=== PATIENT | male | born 1985 | race Caucasian/White ===

== ENCOUNTER 2019-01-12 20:16 | Emergency (ER) | payer OTHER ==
[~2019-01-12] VITALS: Ht 185.4 cm; Wt 95.3 kg
--- NOTE | 2019-01-12 20:12 | NUR ---
ED Nurse Note: pt brought in by DEBBIE from [facility] c/c sob x 30 min, per EMS report pt ran out of albuterol inhaler, pt received 10mg albuterol nebulizer tx on field by medic. pt aA&ox4, gcs=15, tachypnea, sinus tach on surveillance system monitor, o2sat 94%, noted LS=wheezing on auscultation, will cont monitor.
--- NOTE | 2019-01-12 20:16 | NUR ---
ED Nurse Note: RT contacted.
[2019-01-12 20:19] VITALS: BP 106/68
[2019-01-12] MEDS ORDERED: ALBUTEROL2.5 MG/3 M INH (20:23)
--- NOTE | 2019-01-12 20:25 | Emergency Room Report ---
History of Present Illness General Chief Complaint: Dyspnea/Respdistress Source: Patient (RodrigoCelso ACEVEDO) Present Illness HPI Patient presents with complaints of exacerbation of his asthma Patient reports that he has had flu symptoms recently with increased cough and low-grade fever Patient reports very severe asthma with previous history of intubation During the examination is able to speak in short sentences denies any vomiting or diarrhea denies any recent travel denies any pleurisy He does feel significantly short of breath (Celso Wallace DO) Allergies: Coded Allergies: No Known Allergies (Unverified , 01/12/19) Patient History Past Medical History: see triage record Pertinent Family History: none Reviewed Nursing Documentation: PMH: Agreed; PSxH: Agreed (Celso Wallace DO) Review of Systems All Other Systems: negative except mentioned in HPI (Celso Wallace DO) Physical Exam Vital Signs Date Time Temp Pulse Resp B/P (MAP) Pulse Ox O2 Delivery O2 Flow Rate FiO2 01/12/19 20:08 98.2 97 26 106/68 (81) 96 Room Air Sp02 EP Interpretation: reviewed, normal General Appearance: mild distress - Appears short of breath Head: normocephalic, atraumatic Eyes: bilateral eye PERRL, bilateral eye EOMI ENT: hearing grossly normal, normal pharynx, TMs + canals normal, uvula midline Neck: full range of motion, supple, no meningismus, no bony tend Respiratory: no accessory muscle use, wheezing - Bilaterally with mild retractions Cardiovascular #1: no edema, no gallop, no JVD, no murmur, tachycardia Gastrointestinal: normal bowel sounds, non tender, soft, no mass, no organomegaly, non-distended, no guarding, no hernia, no pulsatile mass, no rebound Genitourinary: no CVA tenderness Musculoskeletal: normal inspection Neurologic: oriented x3, responsive, nut chopper III-XII nml as tested, motor strength/ tone normal, sensory intact Psychiatric: mood/affect normal Skin: no rash Lymphatic: normal inspection, no adenopathy (Celso Wallace DO) Procedures Critical Care Time Critical Care Time 70 minutes for multiple re-evaluations, starting for respiratory failure not including any procedural time (Celso Wallace DO) Medical Decision Making Diagnostic Impression: Primary Impression: Respiratory distress Additional Impressions: Dyspnea Asthma attack Right lower lobe consolidation Hypokalemia ER Course Patient is a fairly complex patient with multiple differential to consideration including but not limited to cardiac cardiopulmonary and vascular emergencies Patient requiring multiple breathing treatments presents and discomfort and acute distress requiring magnesium and Solu-Medrol as well (Celso Wallace DO) ER Course Please see above note. Patient improved with tx but still with wheezes. CXR possible early infiltrate R base. Zosyn given. K low. Given orally. Improved after epi. HR actually improved. Discussed with Dr. Mary Hansen. Stable for ALS transfer. Laboratory Tests Test 01/12/19 20:35 White Blood Count 5.4 K/UL (4.8-10.8) Red Blood Count 5.17 M/UL (4.70-6.10) Hemoglobin 16.7 G/DL (14.2-18.0) Hematocrit 47.4 % (42.0-52.0) Mean Corpuscular Volume 92 FL (80-99) Mean Corpuscular Hemoglobin 32.2 PG (27.0-31.0) H Mean Corpuscular Hemoglobin Concent 35.2 G/DL (32.0-36.0) Red Cell Distribution Width 10.9 % (11.6-14.8) L Platelet Count 92 K/UL (150-450) L Mean Platelet Volume 7.3 FL (6.5-10.1) Neutrophils (%) (Auto) % (45.0-75.0) Lymphocytes (%) (Auto) % (20.0-45.0) Monocytes (%) (Auto) % (1.0-10.0) Eosinophils (%) (Auto) % (0.0-3.0) Basophils (%) (Auto) % (0.0-2.0) Sodium Level 141 MMOL/L (136-145) Potassium Level 3.2 MMOL/L (3.5-5.1) L Chloride Level 104 MMOL/L (98-107) Carbon Dioxide Level 28 MMOL/L (21-32) Anion Gap 10 mmol/L (5-15) Blood Urea Nitrogen 11 mg/dL (7-18) Creatinine 1.2 MG/DL (0.55-1.30) Estimate Glomerular Filtration Rate > 60 mL/min (>60) Glucose Level 136 MG/DL (74-106) H Calcium Level 8.9 MG/DL (8.5-10.1) Total Bilirubin 0.6 MG/DL (0.2-1.0) Aspartate Amino Transferase (AST) 19 U/L (15-37) Alanine Aminotransferase (ALT) 29 U/L (12-78) Alkaline Phosphatase 61 U/L (46-116) Total Creatine Kinase 98 U/L (26-308) Creatine Kinase MB 0.9 NG/ML (0.0-3.6) Creatine Kinase MB Relative Index 0.9 Troponin I 0.000 ng/mL (0.000-0.056) Total Protein 7.7 G/DL (6.4-8.2) Albumin 4.4 G/DL (3.4-5.0) Globulin 3.3 g/dL Albumin/Globulin Ratio 1.3 (1.0-2.7) (Chris Rice MD) Rhythm Strip Diag. Results EP Interpretation: yes Rate: 110 Rhythm: no PVC's, no ectopy, other (Celso Wallace DO) EP Interpretation: yes Rhythm: no PVC's, no ectopy, other - sT 101 (Chris Rice MD) Last Vital Signs Date Time Temp Pulse Resp B/P (MAP) Pulse Ox O2 Delivery O2 Flow Rate FiO2 01/12/19 20:08 98.2 97 26 106/68 (81) 96 Room Air Status: improved (Celso Wallace DO) Status: improved (Chris Rice MD) Disposition: XFER SHT-TRM HOSP Condition: Serious Celso Wallace DO Jan 12, 2019 20:25 Chris Rice MD Jan 12, 2019 22:23
[2019-01-12] MEDS ORDERED: Levalbuterol Inh UD 1.25mg/0.5ml HHN ONE ×2 (20:30→21:00)
[2019-01-12] MEDS ORDERED: Ipratropium 0.02% Inh Soln 2.5ml UD HHN ONE (20:30)
[2019-01-12] MEDS ORDERED: Solu-MEDROL 125mg Inj IVP ONE (20:30)
[2019-01-12 21:13] LABS: HEMATOCRIT 47.4 % (42.0-52.0); HEMOGLOBIN 16.7 G/DL (14.2-18.0); MEAN CORPUSCULAR VOLUME 92 FL (80-99); PLATELET COUNT 92 K/UL (150-450); RED BLOOD COUNT 5.17 M/UL (4.70-6.10); RED CELL DISTRIBUTION WIDTH 10.9 % (11.6-14.8); WHITE BLOOD COUNT 5.4 K/UL (4.8-10.8)
[2019-01-12 21:19] VITALS: BP 103/64
[2019-01-12 21:22] LABS: ANION GAP 10 mmol/L (5-15); BLOOD UREA NITROGEN 11 mg/dL (7-18); CALCIUM 8.9 MG/DL (8.5-10.1); CARBON DIOXIDE 28 MMOL/L (21-32); CHLORIDE 104 MMOL/L (98-107); CREATININE 1.2 MG/DL (0.55-1.30); POTASSIUM 3.2 MMOL/L (3.5-5.1); SODIUM 141 MMOL/L (136-145)
[2019-01-12] MEDS: Albuterol ud Inhalation HHN SCH ×3 (21:24→21:57)
[2019-01-12 21:36] LABS: ALANINE AMINOTRANSFERASE 29 U/L (12-78); ALBUMIN 4.4 G/DL (3.4-5.0); ALBUMIN/GLOBULIN RATIO 1.3 (1.0-2.7); ALKALINE PHOSPHATASE 61 U/L (46-116); ASPARTATE AMINO TRANSFERASE 19 U/L (15-37); BILIRUBIN,TOTAL 0.6 MG/DL (0.2-1.0); CKMB 0.9 NG/ML (0.0-3.6); CREATINE KINASE 98 U/L (26-308)
--- NOTE | 2019-01-12 22:16 | Diagnostic Imaging Report ---
EXAM: XR Chest, 1 View CLINICAL HISTORY: SOB TECHNIQUE: Frontal view of the chest. COMPARISON: No relevant prior studies available. FINDINGS: Lungs: Patchy alveolar disease in the right lower lung which may represent pneumonia. Pleural space: Unremarkable. No pneumothorax. Heart: Unremarkable. No cardiomegaly. Mediastinum: Unremarkable. Bones/joints: Unremarkable. IMPRESSION: Patchy alveolar disease in the right lower lung which may represent pneumonia.
[2019-01-12 22:29] VITALS: BP 115/61
[2019-01-12] MEDS ORDERED: Piperacillin/Tazobactam 3.375 GM in NS 110 ML IVPB ONE (22:30)
[2019-01-12] MEDS ORDERED: EPINEPHrine 1mg/1ml Amp IM ONE (22:30)
--- NOTE | 2019-01-12 23:00 | NUR ---
ED Nurse Note: pt states breathing is better with breathing tx but continue to have wheezing, ERMD notified regarding pt's condition, will cont monitor. RT at the bedside.
[2019-01-12 23:29] VITALS: BP 116/67
--- NOTE | 2019-01-13 00:47 | NUR ---
ED Nurse Note: report given to BIBI Shelby from [facility]. pending xfr
--- NOTE | 2019-01-13 02:12 | NUR ---
ED Nurse Note: ambulance at the bedside for transport, report given to ems and care endorsed, pt vss, no sx resp distress at this time, resp even and unlabored, pt reports breathing feels better, iv intact and patent, pt sinus tach on ict managers. pt left w/ all belongings.
== END 2019-01-13 02:13 | disposition short-term general hospital (02) ==
LOC: EDBD 20:16 → EMR 20:29
DX: R06.03 Acute respiratory distress (principal); R06.00 Dyspnea, unspecified; J45.901 Unspecified asthma with (acute) exacerbation; E87.6 Hypokalemia
CPT/HCPCS: 36415; 71045; 80053; 82550; 82553; 84484; 85025; 87040; 93005; 94640; 94664; 96361; 96365; 96368; 96372; 96375; 99291; J0171; J2543; J2930; J7644; J8499